=== PATIENT | female | born 1955 | race Caucasian/White ===

== ENCOUNTER → 2016-11-16 | Outpatient (CLI) | payer OTHER ==
--- NOTE | 2016-11-16 17:50 | RADRPT ---
PROCEDURE: XR pelvis/left hip. CLINICAL INDICATION: Hip pain TECHNIQUE: AP pelvis/AP and lateral left hip view performed COMPARISON: No prior studies are available for comparison. FINDINGS: There is moderate to severe bilateral hip osteoarthrosis. This is associated with joint space narrow ing, subchondral sclerosis , subchondral cyst formation and osteophytosis. There is normal minerali zation. No fracture is identified. There are probable sclerotic bone islands in the left ischium. The soft tissues are unremarkable. IMPRESSION: Moderate to severe bilateral hip osteoarthrosis. RPTAT: HGDB .Lupillo Ball MD, Date Time Electronically viewed and signed by .Lupillo Ball MD, on 11/16/2016 17:50 .B/
== END | disposition home or self-care (01) ==
LOC: HKI 10:57
PROVIDERS: ATTEND Orthopaedic Surgery
DX: M16.12 Unilateral primary osteoarthritis, left hip (principal); M25.551 Pain in right hip
CPT/HCPCS: 73502; G0463

== ENCOUNTER → 2016-12-28 | Outpatient (CLI) | payer OTHER | END | disposition home or self-care (01) | LOC: HKI 10:45 | PROVIDERS: ATTEND Orthopaedic Surgery | DX: M25.552 Pain in left hip (principal); M16.12 Unilateral primary osteoarthritis, left hip; J45.909 Unspecified asthma, uncomplicated | CPT/HCPCS: G0463 ==

== ENCOUNTER 2017-01-03 07:00 | Inpatient (IN) | payer OTHER ==
[~2017-01-03] VITALS: Ht 170.2 cm; Wt 84.3 kg
[2017-01-03] VITALS (38 sets, daily range): BP systolic 97–132; BP diastolic 46–94; PULSE 78–107; RESP 15–30; Ht 170.2 cm; Wt 84.3 kg
[~2017-01-03 07:00] MED LIST: BUPIVACAINE LIPOSOME/PF 266 MG/20 ML VIAL INFIL SCH; CEFAZOLIN 2GM/50 ML (PMX) 50 ML X1 BEFORE INCISION IVPB SCH; CELECOXIB 400 MG PO X1 DOSE PO SCH; ETOMIDATE 20 MG INJ ONE; EXPAREL NOTE (BUPIVICAINE LIPOSOMAL) XX SCH; LACTATED RINGER'S 1,000 ML IV SCH; LIDOCAINE 2% (SDV) 5 ML INJ ONE; PAIN COCKTAIL-CEFUROXIME IRR SCH; PREGABALIN 300 MG PO X1 PO SCH; TRANEXAMIC ACID 820 MG in SOD CHLORIDE 0.9% 100 ML IVPB SCH; TRANEXAMIC ACID 820 MG in SOD CHLORIDE 0.9% 91.8 ML IV SCH; oxyCODONE (CR) 10 MG TAB [oxyCONTIN] X1 DOSE PO SCH; traMADOL 50 MG TAB X 1 DOSE PO SCH
[2017-01-03] MEDS ORDERED: FENTAnyl 50 MCG/ML VIAL ONE (08:24)
[2017-01-03] MEDS ORDERED: MIDAZOLAM 1 MG/ML 2 ML INJ ONE (08:24)
[2017-01-03] MEDS ORDERED: GLYCOPYRROLATE 0.4 MG INJ ONE (08:24)
[2017-01-03] MEDS ORDERED: NEOSTIGMINE 3 MG/3 ML SYRINGE ONE (08:24)
[2017-01-03] MEDS ORDERED: PROPOFOL 0 ML ONE (08:24)
[2017-01-03] MEDS ORDERED: ROCURONIUM 50 MG INJ ONE (08:24)
[2017-01-03] MEDS ORDERED: CEFAZOLIN 1 GM INJ ONE (08:24)
[2017-01-03] MEDS ORDERED: ONDANSETRON 4 MG INJ ONE (08:25)
[2017-01-03] MEDS ORDERED: PROPOFOL 100 ML ONE (08:25)
[2017-01-03] MEDS ORDERED: DEXAMETHASONE 4 MG/ML 1 ML INJ ONE (08:25)
[2017-01-03] MEDS ORDERED: ATOR10TA65 PO (08:54)
[2017-01-03] MEDS ORDERED: AZEL23SP NASAL (08:55)
[2017-01-03] MEDS ORDERED: METO100T13 PO (08:55)
[2017-01-03] MEDS ORDERED: MONT10TA21 PO (08:56)
[2017-01-03] MEDS ORDERED: PANT40TA3 PO (08:56)
[2017-01-03] MEDS ORDERED: BECL8.7A5 INH (08:56)
[2017-01-03] MEDS ORDERED: TOLT4CAP PO (08:57)
[2017-01-03] MEDS ORDERED: CETI10CA PO (08:58)
--- NOTE | 2017-01-03 09:49 | HPN ---
Date/Time of Note Date/Time of Note DATE: 01/03/17 TIME: 09:48 Interval H&P Admission Note Pt. seen H&P reviewed: No system changes No changes from H&P on 12/26/16 by PARRISH Vaughn MD Jan 03, 2017 09:49
[2017-01-03] MEDS ORDERED: CITRIC ACID/NA CITRATE 30 ML CUP ONE (10:04)
[2017-01-03] MEDS ORDERED: VANCOMYCIN 1 GM INJ ONE (10:16)
[2017-01-03] MEDS ORDERED: POLYMYXIN B 500000 UNIT INJ ONE (10:16)
[2017-01-03] MEDS ORDERED: SODIUM CL BACTERIOSTATIC 30 ML INJ ONE (10:16)
[2017-01-03] MEDS ORDERED: CITRIC ACID/NA CITRATE 30 ML CUP PO ONE (10:30)
[2017-01-03] MEDS ORDERED: PHENYLephrine (100 MCG/ML) 5ML SYG ONE (10:59)
[2017-01-03] MEDS ORDERED: MIDAZOLAM 1 MG/ML 2 ML INJ IV PRN (11:30)
[2017-01-03] MEDS ORDERED: hydrALAzine 20 MG INJ IV PRN (11:30)
[2017-01-03] MEDS ORDERED: EPHEDrine SULFATE 50 MG/5 ML SYG IV PRN (11:30)
[2017-01-03] MEDS ORDERED: LABETALOL HCL 20MG INJ IV PRN (11:30)
[2017-01-03] MEDS ORDERED: DIPHENHYDRAMINE 50 MG INJ IV PRN (11:30)
[2017-01-03] MEDS ORDERED: FENTAnyl 50 MCG/ML VIAL IV PRN ×3 (11:30)
[2017-01-03] MEDS ORDERED: TRIMETHOBENZAMIDE 100 MG/ML VIAL IM PRN (11:30)
[2017-01-03] MEDS ORDERED: HYDROmorphONE (0.2 MG/ML) 10ML SYG IV PRN ×3 (11:30)
[2017-01-03] MEDS ORDERED: ONDANSETRON 4 MG INJ IV PRN (11:30)
[2017-01-03] MEDS ORDERED: MEPERIDINE 25 MG INJ IV PRN (11:30)
[2017-01-03] MEDS ORDERED: BACITRACIN 50000 UNITS INJ IRR ONE (11:40)
--- NOTE | 2017-01-03 13:24 | PN ---
Date/Time of Note Date/Time of Note DATE: 01/03/17 TIME: 13:23 Assessment/Plan Lines/Catheters IV Catheter Type (from Nrsg): Peripheral IV Assessment/Plan Assessment/Plan Stable in PACU, s/p left anterior JEANE -cont abx -pain meds as needed -ASA/SCDs for DVT prophylaxis -OOB with PT -monitor drains -check AM labs -d/c tabares in AM XR of the left hip is pending at this time Subjective 24 Hr Interval Summary Stable in PACU. Moving all extremities. Denies any pain. Exam/Review of Systems Vital Signs Vitals Vital Signs Date Time Temp Pulse Resp B/P Pulse Ox O2 Delivery O2 Flow Rate FiO2 01/03/17 13:21 97.5 01/03/17 09:20 78 18 129/86 99 Room Air Intake and Output 01/02/17 01/02/17 01/03/17 14:59 22:59 06:59 Intake Total 0 ml Balance 0 ml Exam Free Text/Dictation Dressing dry Incision clean, dry, and intact without redness or drainage 5/5 Quadriceps, Tibialis Anterior, EHL, Gastroc, Soleus, Peroneals Normal sensation Palpable DT/PT, CR <2 sec No distal edema KELSEY COOPER PA-C Jan 03, 2017 13:24
[2017-01-03] MEDS ORDERED: ASPIRIN (EC) 325 MG TAB PO ONE (13:30)
[2017-01-03] MEDS ORDERED: BISACODYL 10 MG SUPP PR PRN (13:30)
[2017-01-03] MEDS ORDERED: oxyCODONE 5 MG TAB PO PRN ×2 (13:30)
[2017-01-03] MEDS ORDERED: DIPHENHYDRAMINE 25 MG CAP PO PRN (13:30)
[2017-01-03] MEDS ORDERED: NA PHOSPHATE/BIPHOS 133 ML ENEMA PR PRN (13:30)
[2017-01-03] MEDS ORDERED: HYDROmorphONE 1 MG/ML SYG IV PRN (13:30)
[2017-01-03] MEDS ORDERED: MAGNESIUM HYDROXIDE 30ML CUP PO PRN (13:30)
[2017-01-03] MEDS ORDERED: NACL 0.9% 3 ML SYG IV SCH (13:30)
[2017-01-03] MEDS: CEFAZOLIN 2 GM/50 ML (PMX) 50 ML IVPB SCH ×2 (13:42→21:33)
[2017-01-03] MEDS ORDERED: ALBUTEROL 0.083% (NEB) 2.5 MG/3 ML AMP HHN PRN (14:00)
--- NOTE | 2017-01-03 14:20 | RADRPT ---
PROCEDURE: Intraoperative imaging of the left hip with fluoroscopy. CLINICAL INDICATION: Left hip pain. Intraoperative. TECHNIQUE: 20 images of the left hip were obtained in the operating room with an image intensifier . No radiologist was in attendance. 0.6 minutes of fluoroscopy time was used. COMPARISON: No prior study is available for comparison. FINDINGS: Images demonstrate placement of a total left hip arthroplasty. IMPRESSION: 1. Satisfactory intraoperative imaging of the left hip. RPTAT: QQ .Lavell Canseco MD, MD Date Time Electronically viewed and signed by .Lavell Canseco MD, MD on 01/03/2017 14:19 .R/
[2017-01-03 14:23] LABS: HEMATOCRIT 34.7 % (37.0-47.0); HEMOGLOBIN 11.2 g/dl (12.0-16.0)
[2017-01-03 14:38] LABS: CREATININE 0.56 mg/dl (0.44-1.00)
[2017-01-03 14:42] LABS: CALCIUM 8.9 mg/dl (8.4-10.2)
--- NOTE | 2017-01-03 14:52 | OPR ---
DATE OF OPERATION: 01/03/2017 DATE: 01/03/2017 PREOPERATIVE DIAGNOSIS: Left hip osteoarthritis. POSTOPERATIVE DIAGNOSIS: Left hip osteoarthritis. OPERATION PERFORMED: Left anterior total hip arthroplasty. SURGEON: Parrish Suarez MD [employer] OPERATOR: Ivette SORENSON COMPONENTS USED: DePuy size 50 mm Gription [place] cup, 50/32 neutral AltrX polyethylene liner, si ze 4 high-offset Actis stem, 32+5 ceramic head. ANESTHESIA: Spinal plus general endotracheal intubation plus periarticular injection. ANESTHESIOLOGIST: Miguel Oneill MD ESTIMATED BLOOD LOSS: 300 mL INTRAVENOUS FLUIDS: 2 liters crystalloid. SPECIMENS: Femoral head. DRAINS: Hemovac x1 COMPLICATIONS: None. DISPOSITION: The patient tolerated the procedure well and was taken to the recovery room in stable condition. INDICATIONS: The patient is a 61-year-old woman who has had progressive worsening pain in the left hip with radiographic evidence of severe osteoarthritis. She has failed nonsurgical means of treatm ent to control her pain including activity modifications, pain medications, intra-articular injectio ns and ambulatory assist devices. Despite these measures, she has had worsening pain and I felt she would benefit from a total hip arthroplasty through an anterior approach. The risks, benefits, and alternatives of the procedure were explained in detail to the patient. I e xplained the risks of the surgery to include, but not be limited to: bleeding and possible need for blood transfusion; infection; pain; stiffness; neurovascular injury with possible numbness, weakness , and/or paralysis anywhere from the hip down to the toes; fracture; instability; dislocation; leg l ength inequality; wear and/or loosening of the prosthesis and possible need for future revision; blo od clots; pulmonary embolism; and anesthetic complications such as heart attack, stroke, GI bleed, p neumonia, and/or . Ample time was allowed for the patient to ask questions, all of which were addressed and answered. The patient understood the risks involved and wished to proceed. Informed consent was signed prior to the procedure. PROCEDURE: The patient's left hip was initialed with a marking pen in the preoperative area to ident karla the correct operative site. The patient was brought to the operating room and transferred from the [facility] to the [facility] where a spinal anesthetic was administered. The patient was t hen anesthetized and intubated. A Stewart catheter was placed. Both feet were placed into well padde d boots which were then placed into the leg holders of the traction booms. A timeout was performed to confirm that the left side was the correct operative site. The patient was given 2 g of intraven ous Ancef within one hour prior to the procedure. The operative hip was prepped and draped in the u sual sterile fashion. A 10 cm oblique incision was made over the anterior aspect of the hip and carried down through subcu taneous tissue and fat with sharp dissection. The tensor fascia tony was incised along the length o f the wound. The tensor fascia muscle was retracted laterally and the sartorius medially. The anter ior circumflex vessels were identified and tied off with 2-0 silk suture and coagulated with the Apptimize demonstrator knitting. The rectus femoris was elevated off the anterior capsule and an anterior capsul ectomy performed. A femoral neck osteotomy was made and the head removed from the acetabulum. The acetabulum was denuded of cartilage circumferentially, as was the femoral head. Retractors were william cristy around the acetabulum. The remnants of the labrum and ligamentum teres were excised. I reamed the acetabulum to the medial wall and then went into an anatomic position and increased the reamer s ize in 2 mm increments until I got a good bite and was down to bleeding subchondral bone. The [place] cup was opened and impacted into the acetabulum and sat flush circumferentially, gettin g a good bite. C-arm imaging showed it had about 40 to 45 degrees of abduction and 20 degrees of ant eversion. The real liner was opened and impacted into the acetabulum and sat flush circumferentially . Attention was turned towards the femur. The operative leg was carefully lowered to the floor with the leg adducted. The foot was then exter ezequiel rotated to approximately 110 degrees. A posteromedial release was performed to optimize expos ure. The femoral hook was placed underneath the proximal femur and the hydraulic lift was then used to elevate the femur up out of the wound. The sherie cutter osteotome was used to remove the remai juliana overhanging greater trochanter. The femur was then broached, going up in one size increments u ntil it sat flush with the neck cut and a stable fit was achieved. The trial neck and head were ass embled and reduced into the acetabulum. Fluoroscopic imaging showed the components to be in good pos ition and the leg lengths and offsets to be equal. At this point, the trial was dislocated and the trial broach removed. The canal was irrigated and d ried. The real stem was opened and impacted into the femur. The trunnion was irrigated and dried, a nd the real femoral head was impacted onto the trunnion, and reduced into the acetabulum. The soft tissues were infiltrated with a mixture of 150 mg of 0.5% bupivacaine, 8 mg of Duramorph, 3 00 mcg of epinephrine, 30 mg of Toradol, 100 mcg of clonidine, 750 mg of cefuroxime and 86 mL of nor mal saline, followed by an injection of 266 mg of liposomal bupivacaine. At this point the hip was irrigated with a mixture of Betadine/saline and then antibiotic saline with pulsatile lavage. A Hem ovac drain was placed in the deep portion of the wound and brought out the anterolateral thigh. Ther e was good hemostasis. The tensor fascia tony was repaired with a running #1 Vicryl. The deep fat layer was irrigated and closed with 2-0 Stratafix and the subcutaneous layer closed with 3-0 Vicryl and the skin was closed with chinmay and then sealed with Dermabond. The drain was secured with 3-0 nylon. The sponge and needle counts were correct at the end of the case. The wound was covered with an occ lusive dressing. The patient was awakened, extubated, and taken to the recovery room in stable cond ition. Dictated By: PARRISH ARANGO/CONNIE Conf#: [id number] DID#: [id number]
--- NOTE | 2017-01-03 14:52 | CONS ---
DATE OF ADMISSION: 01/03/2017 DATE OF CONSULTATION: 01/03/2017 TYPE OF CONSULTATION: Postoperative medical consultative note Thank you very much for allowing me to evaluate this 61-year-old female who just underwent left tota l hip replacement. HISTORICAL EVENTS: As you well know, this patient has had progressive disabling pain involving her left hip and elected to proceed with surgery. In recovery, she is comfortable without cough, wheezi ng, shortness of breath, nausea, vomiting, abdominal or chest pain. MEDICATIONS: Prior to admission include: 1. Detrol-LA 4 mg per day. 2. Singulair 10 per day. 3. Metoprolol 100 mg per day. 4. Albuterol inhaler as needed along with Dymista and Zyrtec p.r.n. 10 mg. ALLERGIES: INTOLERANCES INCLUDE CIPRO AND LEVOFLOXACIN. SOCIAL HISTORY: Does not smoke, does not drink. FAMILY HISTORY: To be reviewed later. PHYSICAL EXAMINATION: GENERAL: [place] female in no acute distress. VITAL SIGNS: Blood pressure 121/80, pulse 70, respirations 20, she was afebrile. HEENT: Eyes: Extraocular muscles were full. Nose, mouth and throat are normal. NECK: Supple. There was no jugular venous distention, thyroid enlargement or adenopathy. LUNGS: Clear. HEART: Rhythm regular, no murmur. No third or fourth sound. ABDOMEN: Nontender. Liver and spleen were not palpable. No masses or tenderness were noted. EXTREMITIES: No edema, no calf tenderness. NEUROLOGIC: No lateralizing motor weakness. IMPRESSION: 1. Stable postop left hip replacement. 2. Tachycardia. We will continue beta nayely. 3. History of asthma. We will continue Singulair and use inhalers only if needed. 4. We will evaluate daily for signs and symptoms of thromboembolic disease despite appropriate deep venous thrombosis prophylaxis. Dictated By: MONIQUE YA MD MR/NTS Conf#: [id number] DID#: [id number] CC: PARRISH GANT MD;*EndCC*
--- NOTE | 2017-01-03 14:57 | RADRPT ---
PROCEDURE: XR Pelvis. CLINICAL INDICATION: Postop TECHNIQUE: Single AP view of the pelvis. COMPARISON: Left hip series 01/02/2017 FINDINGS: Patient is status post total left hip arthroplasty. Alignment is grossly anatomic. Hardware is inta ct. There is no evidence of hardware failure or fracture. Postoperative changes including a subcut aneous drain, skin chinmay, and subcutaneous gas are present. There are moderate degenerative saunders es of the right hip. IMPRESSION: 1. Total left hip arthroplasty in anatomic alignment. 2. Moderate degenerative change of the right hip. RPTAT: KK .Darrin Simpson MD, MD Date Time Electronically viewed and signed by .Darrin Simpson MD, MD on 01/03/2017 14:57 .B/
[2017-01-03] MEDS ORDERED: BACITRACIN 50000 UNITS INJ ONE (15:03)
[2017-01-03] MEDS ORDERED: TRANEXAMIC ACID 840 MG in SOD CHLORIDE 0.9% 100 ML IVPB ONE ×2 (16:30→19:30)
[2017-01-03] MEDS: METOPROLOL (XL) 50 MG TAB PO SCH (19:14)
[2017-01-03] MEDS: MOMETASONE 0.24 GM INHALER INH SCH (21:00)
[2017-01-03] MEDS ORDERED: NON-FORMULARY/PATIENT OWN MED (Azelastine/Fluticasone (Dymista Nasal Spray) 1 SPRAY) NASAL SCH (21:00)
[2017-01-03] MEDS: LACTATED RINGER'S 1,000 ML IV SCH ×2 (21:01→21:07)
[2017-01-03] MEDS: PANTOPRAZOLE (EC) 40 MG TAB PO SCH (21:01)
[2017-01-03] MEDS: ACETAMINOPHEN 1000MG/100ML IV 100 ML IVPB SCH (21:01)
[2017-01-03] MEDS: MONTELUKAST 10 MG TAB PO SCH (21:02)
[2017-01-03] MEDS: ATORVASTATIN 10 MG TAB PO SCH (21:02)
[2017-01-03] MEDS: DOCUSATE SODIUM 100 MG CAP PO SCH (21:02)
[2017-01-03] MEDS: PREGABALIN 25 MG CAP PO SCH (21:03)
[2017-01-03] MEDS: traMADol 50 MG TAB PO SCH (21:03)
--- NOTE | 2017-01-03 21:33 | OPR ---
Date/Time of Note Date/Time of Note DATE: 01/03/17 TIME: 21:32 Operative Report Free Text/Dictation Dictation # [id number] Procedure Date: Jan 03, 2017 Preoperative Diagnosis Left hip OA Postoperative Diagnosis Same Operation Performed Left Anterior JEANE Surgeon: PARRISH GANT MD optometry assistant: KELSEY COOPER PA-C Anesthesia: general, spinal Anesthesiologist: Miguel Oneill M.D. Estimated Blood Loss: 250 - 300 ml's Specimens Femoral Head Tubes/Drains Hemovac x 1 Complications: None Pt Condition Post Procedure: stable Disposition: PACU PARRISH GANT MD Jan 03, 2017 21:33
[2017-01-03] MEDS: ONDANSETRON 4 MG INJ IV PRN (21:37)
[2017-01-04 00:09] VITALS: BP 103/74; RESP 17
[2017-01-04] MEDS: traMADol 50 MG TAB PO SCH ×5 (01:41→23:19)
[2017-01-04] MEDS: ACETAMINOPHEN 1000MG/100ML IV 100 ML IVPB SCH ×3 (01:42→11:50)
[2017-01-04] MEDS: CEFAZOLIN 2 GM/50 ML (PMX) 50 ML IVPB SCH (04:53)
[2017-01-04] MEDS: PANTOPRAZOLE (EC) 40 MG TAB PO SCH ×2 (04:54→17:47)
[2017-01-04] MEDS: LACTATED RINGER'S 1,000 ML IV SCH ×3 (05:07→14:11)
[2017-01-04 05:19] LABS: HEMATOCRIT 31.4 % (37.0-47.0); HEMOGLOBIN 10.2 g/dl (12.0-16.0)
[2017-01-04 05:26] LABS: POTASSIUM 4.1 mmol/L (3.5-5.1)
[2017-01-04 05:28] LABS: CREATININE 0.56 mg/dl (0.44-1.00)
[2017-01-04 05:29] LABS: CALCIUM 8.9 mg/dl (8.4-10.2)
--- NOTE | 2017-01-04 08:34 | CONS ---
Date/Time of Note Date/Time of Note DATE: 01/04/17 TIME: 08:33 Assessment/Plan Assessment/Plan Additional Assessment/Plan 1. Stable postop left hip replacement. 2. Tachycardia, asx 3. History of asthma, quiescent Consultation Date/Type/Reason Admit Date/Time Jan 03, 2017 at 08:00 Initial Consult Date Detailed Summary Respiratory: No shortness of breath Cardiovascular: No chest pain Gastrointestinal: no complaints Genitourinary: other (tabares still in place) Musculoskeletal: bone/joint pain (mild left hip pain) Exam/Review of Systems Vital Signs Vitals Vital Signs Date Time Temp Pulse Resp B/P Pulse Ox O2 Delivery O2 Flow Rate FiO2 01/04/17 00:09 98.4 103 17 103/74 96 01/03/17 22:30 Nasal Cannula 2.0 Intake and Output 01/03/17 01/03/17 01/04/17 15:00 23:00 07:00 Intake Total 2708.2 ml 2400 ml Output Total 1130 ml 1710 ml Balance 1578.2 ml 690 ml Exam Neck: No jvd Respiratory: clear to auscultation Cardiovascular: regular rate and rhythm Gastrointestinal: soft Extremities: No edema (and no calf tend bilat) Results Result Diagram: 01/04/17 0420 01/04/17 0420 Results 24 hrs Laboratory Tests Test 01/03/17 14:08 01/04/17 04:20 Hemoglobin 11.2 L 10.2 L Hematocrit 34.7 L 31.4 L Sodium Level 139 139 Potassium Level 4.0 4.1 Chloride Level 104 105 Carbon Dioxide Level 25 26 Anion Gap 14 12 Blood Urea Nitrogen 11 11 Creatinine 0.56 0.56 Glucose Level 155 112 # Calcium Level 8.9 8.9 Medications Medications Current Medications Miscellaneous Information 1 ea NOTE XX ; Start 01/03/17 at 06:00; Stop 01/07/17 at 05:59 Atorvastatin Calcium (Lipitor) 10 mg QHS PO Last administered on 01/03/17 21: 02; Admin Dose 10 MG; Start 01/03/17 at 21:00 Montelukast Sodium (Singulair) 10 mg QHS PO Last administered on 01/03/17 21: 02; Admin Dose 10 MG; Start 01/03/17 at 21:00 Tolterodine Tartrate (Detrol La) 4 mg DAILY PO ; Start 01/04/17 at 09:00 Mometasone Furoate (Asmanex) 1 puff BID INH ; Start 01/03/17 at 21:00 Loratadine 10 mg 10 mg DAILY PO ; Start 01/04/17 at 09:00 Lactated Ringer's (Lr) 1,000 ml @ 125 mls/hr Q8H IV Last administered on 21:01; Admin Dose 125 MLS/HR; Start 01/03/17 at 13:07 Celecoxib 200 mg 200 mg DAILY PO ; Start 01/04/17 at 09:00 Acetaminophen (Ofirmev 1000mg/ 100ml Iv) 100 ml @ 400 mls/hr Q6 IVPB Last administered on 01/04/17 05:36; Admin Dose 400 MLS/HR; Start 01/03/17 at 18:00 ; Stop 01/04/17 at 17:59 Tramadol HCl (Ultram) 50 mg Q6 PO Last administered on 01/04/17 04:54; Admin Dose 50 MG; Start 01/03/17 at 18:00; Stop 01/06/17 at 17:59 Oxycodone HCl (Roxicodone) 5 mg Q4H PRN PO PAIN LEVEL 1-3; Start 01/03/17 at 13 :30 Oxycodone HCl (Roxicodone) 10 mg Q4H PRN PO PAIN LEVEL 4-7; Start 01/03/17 at 13:30 Hydromorphone HCl (Dilaudid) 1 mg Q3H PRN IV PAIN LEVEL 8-10; Start 01/03/17 at 13:30 Ondansetron HCl (Zofran Inj) 4 mg Q6H PRN IV NAUSEA AND/OR VOMITING Last administered on 01/03/17 21:37; Admin Dose 4 MG; Start 01/03/17 at 13:30 Bisacodyl (Dulcolax Supp) 10 mg Q12H PRN [place] CONSTIPATION; Start 01/03/17 at 13: 30 Magnesium Hydroxide (Milk Of Mag) 30 ml BID PRN PO CONSTIPATION; Start at 13:30 Sodium Biphosphate/ Sodium Phosphate (Fleet Enema) 133 ml DAILY PRN [place] CONSTIPATION; Start 01/03/17 at 13:30 Docusate Sodium (Colace) 100 mg BID PO Last administered on 01/03/17 21:02; Admin Dose 100 MG; Start 01/03/17 at 21:00 Diphenhydramine HCl (Benadryl) 25 mg Q6H PRN PO PRURITUS; Start 01/03/17 at 13: 30 Aspirin (Ecotrin) 325 mg BID PO ; Start 01/04/17 at 09:00 Pregabalin (Lyrica) 50 mg BID PO Last administered on 01/03/17 21:03; Admin Dose 50 MG; Start 01/03/17 at 21:00 Pantoprazole (Protonix Tab) 40 mg BID@06,18 PO Last administered on 01/04/17 04:54; Admin Dose 40 MG; Start 01/03/17 at 18:00 Metoprolol Succinate (Toprol Xl) 50 mg BID PO Last administered on 01/03/17 19 :14; Admin Dose 50 MG; Start 01/03/17 at 19:00 MONIQUE YA MD Jan 04, 2017 08:34
[2017-01-04] MEDS: MOMETASONE 0.24 GM INHALER INH SCH ×2 (09:00→21:00)
[2017-01-04] MEDS ORDERED: METOPROLOL (XL) 100 MG TAB PO SCH (09:00)
--- NOTE | 2017-01-04 09:00 | PN ---
Date/Time of Note Date/Time of Note DATE: 01/04/17 TIME: 08:59 Assessment/Plan Lines/Catheters IV Catheter Type (from Nrsg): Peripheral IV Stewart in Place (from Nrsg): Yes Assessment/Plan Assessment/Plan Stable POD #1, s/p left anterior JEANE -d/c abx -pain meds as needed -ASA/SCDs for DVT prophylaxis -OOB with PT -drain removed -check AM labs -d/c planning. Will go home upon discharge Subjective 24 Hr Interval Summary No acute overnight events. Denies pain. Did not start PT yesterday. VSS, afebrile. Will plan to go home upon discharge. Exam/Review of Systems Vital Signs Vitals Vital Signs Date Time Temp Pulse Resp B/P Pulse Ox O2 Delivery O2 Flow Rate FiO2 01/04/17 00:09 98.4 103 17 103/74 96 01/03/17 22:30 Nasal Cannula 2.0 Intake and Output 01/03/17 01/03/17 01/04/17 14:59 22:59 06:59 Intake Total 2708.2 ml 2400 ml Output Total 1130 ml 1710 ml Balance 1578.2 ml 690 ml Exam Free Text/Dictation Hemovac: 90cc Dressing dry Incision clean, dry, and intact without redness or drainage 5/5 Quadriceps, Tibialis Anterior, EHL, Gastroc, Soleus, Peroneals Normal sensation Palpable DT/PT, CR <2 sec No distal edema Results Result Diagram: 01/04/1741901/04/17419 KELSEY COOPER PA-C Jan 04, 2017 09:00
[2017-01-04 09:11] VITALS: BP 115/64; RESP 14
[2017-01-04 09:39] LABS: ADD UMIC YES; URINE BILIRUBIN (Dip) NEGATIVE (NEGATIVE); URINE BLOOD (Dip) 1+ (NEGATIVE); URINE COLOR LT. YELLOW (YELLOW); URINE GLUCOSE (Dip) NEGATIVE (NEGATIVE); URINE KETONES (Dip) NEGATIVE (NEGATIVE); URINE LEUKOCYTE ESTERASE (Dip) NEGATIVE (NEGATIVE); URINE NITRITE (Dip) NEGATIVE (NEGATIVE); URINE TOTAL PROTEIN (Dip) NEGATIVE (NEGATIVE); URINE UROBILINOGEN (Dip) 0.2 E.U./dL (0.1-1.0)
[2017-01-04] MEDS: PREGABALIN 25 MG CAP PO SCH (09:43)
[2017-01-04] MEDS: CELECOXIB 200 MG CAP PO SCH (09:43)
[2017-01-04] MEDS: ASPIRIN (EC) 325 MG TAB PO SCH ×2 (09:43→21:06)
[2017-01-04] MEDS: DOCUSATE SODIUM 100 MG CAP PO SCH ×2 (09:43→21:06)
[2017-01-04] MEDS: LORATADINE 10 MG TAB PO SCH (09:44)
[2017-01-04] MEDS: METOPROLOL (XL) 50 MG TAB PO SCH ×2 (09:45→21:08)
[2017-01-04] MEDS: TOLTERODINE (SR) 4 MG CAP PO SCH (09:46)
[2017-01-04] MEDS: ONDANSETRON 4 MG INJ IV PRN (09:51)
[2017-01-04 20:08] VITALS: BP 106/61; RESP 19
[2017-01-04] MEDS: ATORVASTATIN 10 MG TAB PO SCH (21:06)
[2017-01-04] MEDS: MONTELUKAST 10 MG TAB PO SCH (21:06)
[2017-01-04] MEDS: PREGABALIN 50 MG CAP PO SCH (21:06)
[2017-01-05] MEDS: LACTATED RINGER'S 1,000 ML IV SCH ×2 (05:07→13:07)
[2017-01-05 05:29] LABS: HEMATOCRIT 30.9 % (37.0-47.0); HEMOGLOBIN 9.9 g/dl (12.0-16.0)
[2017-01-05 05:37] LABS: POTASSIUM 4.1 mmol/L (3.5-5.1)
[2017-01-05 05:40] LABS: CREATININE 0.69 mg/dl (0.44-1.00)
[2017-01-05 05:41] LABS: CALCIUM 8.7 mg/dl (8.4-10.2)
[2017-01-05] MEDS: PANTOPRAZOLE (EC) 40 MG TAB PO SCH (05:57)
[2017-01-05] MEDS: traMADol 50 MG TAB PO SCH ×2 (05:57→12:00)
[2017-01-05 08:51] VITALS: BP 102/54; RESP 18
[2017-01-05] MEDS: MOMETASONE 0.24 GM INHALER INH SCH (09:00)
[2017-01-05] MEDS: METOPROLOL (XL) 50 MG TAB PO SCH (09:00)
[2017-01-05] MEDS: CELECOXIB 200 MG CAP PO SCH (09:05)
[2017-01-05] MEDS: TOLTERODINE (SR) 4 MG CAP PO SCH (09:05)
[2017-01-05] MEDS: DOCUSATE SODIUM 100 MG CAP PO SCH (09:05)
[2017-01-05] MEDS: ASPIRIN (EC) 325 MG TAB PO SCH (09:05)
[2017-01-05] MEDS: LORATADINE 10 MG TAB PO SCH (09:06)
[2017-01-05] MEDS: PREGABALIN 50 MG CAP PO SCH (09:06)
--- NOTE | 2017-01-05 12:02 | CONS ---
Date/Time of Note Date/Time of Note DATE: 01/05/17 TIME: 12:00 Assessment/Plan Assessment/Plan Additional Assessment/Plan 1. Doing well left hip replacement. 2. Dizziness with standing, will ck orthostatic BP's., will hold beta nayely 3. Nausea may be related to lyrica vs ultram, she will rev with ortho Consultation Date/Type/Reason Admit Date/Time Jan 03, 2017 at 08:00 Detailed Summary Respiratory: No cough, No shortness of breath Cardiovascular: other (a bit dizzy when standing), No chest pain Gastrointestinal: nausea, No vomiting Genitourinary: no complaints Musculoskeletal: bone/joint pain (mild left hip pain) Exam/Review of Systems Vital Signs Vitals Vital Signs Date Time Temp Pulse Resp B/P Pulse Ox O2 Delivery O2 Flow Rate FiO2 01/05/17 08:51 98.6 90 18 102/54 97 01/03/17 22:30 Nasal Cannula 2.0 Intake and Output 01/04/17 01/04/17 01/05/17 15:00 23:00 07:00 Intake Total 1780 ml 800 ml Output Total 300 ml 850 ml Balance 1480 ml -50 ml Exam Neck: No jvd Respiratory: clear to auscultation Cardiovascular: regular rate and rhythm Gastrointestinal: soft Extremities: No edema (and no calf tend) Results Result Diagram: 01/05/177 01/05/17 043 Results 24 hrs Laboratory Tests Test 01/05/17 04:37 Hemoglobin 9.9 L Hematocrit 30.9 L Sodium Level 141 Potassium Level 4.1 Chloride Level 105 Carbon Dioxide Level 32 H Anion Gap 8 Blood Urea Nitrogen 13 Creatinine 0.69 Glucose Level 102 Calcium Level 8.7 Medications Medications Current Medications Miscellaneous Information 1 ea NOTE XX ; Start 01/03/17 at 06:00; Stop 01/07/17 at 05:59 Atorvastatin Calcium (Lipitor) 10 mg QHS PO Last administered on 01/04/17 21: 06; Admin Dose 10 MG; Start 01/03/17 at 21:00 Montelukast Sodium (Singulair) 10 mg QHS PO Last administered on 01/04/17 21: 06; Admin Dose 10 MG; Start 01/03/17 at 21:00 Tolterodine Tartrate (Detrol La) 4 mg DAILY PO Last administered on 01/05/17 09:05; Admin Dose 4 MG; Start 01/04/17 at 09:00 Mometasone Furoate (Asmanex) 1 puff BID INH ; Start 01/03/17 at 21:00 Loratadine 10 mg 10 mg DAILY PO Last administered on 01/05/17 09:06; Admin Dose 10 MG; Start 01/04/17 at 09:00 Lactated Ringer's (Lr) 1,000 ml @ 125 mls/hr Q8H IV Last administered on 14:11; Admin Dose 125 MLS/HR; Start 01/03/17 at 13:07 Celecoxib (Celebrex) 200 mg DAILY PO Last administered on 01/05/17 09:05; Admin Dose 200 MG; Start 01/04/17 at 09:00 Tramadol HCl (Ultram) 50 mg Q6 PO Last administered on 01/05/17 05:57; Admin Dose 50 MG; Start 01/03/17 at 18:00; Stop 01/06/17 at 17:59 Oxycodone HCl (Roxicodone) 5 mg Q4H PRN PO PAIN LEVEL 1-3; Start 01/03/17 at 13 :30 Oxycodone HCl (Roxicodone) 10 mg Q4H PRN PO PAIN LEVEL 4-7; Start 01/03/17 at 13:30 Hydromorphone HCl (Dilaudid) 1 mg Q3H PRN IV PAIN LEVEL 8-10; Start 01/03/17 at 13:30 Ondansetron HCl (Zofran Inj) 4 mg Q6H PRN IV NAUSEA AND/OR VOMITING Last administered on 01/04/17 09:51; Admin Dose 4 MG; Start 01/03/17 at 13:30 Bisacodyl (Dulcolax Supp) 10 mg Q12H PRN [place] CONSTIPATION; Start 01/03/17 at 13: 30 Magnesium Hydroxide (Milk Of Mag) 30 ml BID PRN PO CONSTIPATION; Start at 13:30 Sodium Biphosphate/ Sodium Phosphate (Fleet Enema) 133 ml DAILY PRN [place] CONSTIPATION; Start 01/03/17 at 13:30 Docusate Sodium (Colace) 100 mg BID PO Last administered on 01/05/17 09:05; Admin Dose 100 MG; Start 01/03/17 at 21:00 Diphenhydramine HCl (Benadryl) 25 mg Q6H PRN PO PRURITUS; Start 01/03/17 at 13: 30 Aspirin (Ecotrin) 325 mg BID PO Last administered on 01/05/17 09:05; Admin Dose 325 MG; Start 01/04/17 at 09:00 Pantoprazole (Protonix Tab) 40 mg BID@,18 PO Last administered on 01/05/17 05:57; Admin Dose 40 MG; Start 01/03/17 at 18:00 Metoprolol Succinate (Toprol Xl) 50 mg BID PO Last administered on 01/04/17 21 :08; Admin Dose 50 MG; Start 01/03/17 at 19:00 Pregabalin (Lyrica) 50 mg BID PO Last administered on 01/05/17 09:06; Admin Dose 50 MG; Start 01/04/17 at 21:00 MONIQUE YA MD Jan 05, 2017 12:02
[2017-01-05 12:15] VITALS: BP 112/59; PULSE 77; RESP 18
[2017-01-05 12:17] VITALS: BP 105/56; PULSE 80; RESP 18
[2017-01-05 12:20] VITALS: BP 110/62; PULSE 87; RESP 18
[2017-01-05] MEDS ORDERED: ACETAMINOPHEN 325 MG TAB PO PRN (12:30)
--- NOTE | 2017-01-05 13:32 | PDOCDIS ---
Discharge Instructions DIAGNOSIS Discharge Diagnosis: s/p left anterior JEANE CONDITION Patient Condition: Good HOME CARE INSTRUCTIONS: Diet Instructions: Regular ACTIVITY: Activity Restrictions: Slowly Increase Activity Rest between Activity Avoid heavy lifting Do not operate Machinery Do not operate Power Tool Avoid Heavy Housework Keep Limb Elevated Bathing Restrictions: Shower FOLLOW UP/APPOINTMENTS Appointments follow up in the office on 01/13/17 OTHER ORDERS: Other Orders: S/P Anterior JEANE Physical Therapy: Three times per week at home x 2 weeks Daily in Rehab/SNF WB STATUS: WBAT Strengthening exercises for both upper and un-operated lower extremities. 1. Gait training with front wheeled walker 2. Wide base gait, no pivot turns. 3. Abductor strengthening. 4. Quadriceps and hamstring strengthening. 5. May switch to cane in contra lateral hand 6 weeks after surgery. 6. Physical Therapy can open case if nursing is not available. 7. Ice Packs while at rest to surgical wound for 20 minutes, 3 times/day. 8. Patient requires mobile SCDs to reduce risk of developing DVT following JEANE. Patient will use the mobile SCDs for 30 days postoperatively. Hip Precautions: No posterior hip precautions. Bathing assistance by home health aide twice weekly if Medicare patient. Occupational Therapy: Evaluation for assistive devices and ADL training. Wound Care: Keep incision dry & covered with Tegaderm until first visit with Dr. Suarez Anticoagulation Orders: Enteric Coated Aspirin 325 mg po bid x 6 weeks from date of surgery Follow-up:Call for an appointment with Dr. Suarez in 1 week after discharged from hospital at DME Orders: JOSE L, 3-in-1 Commode, Mobile SCDs KELSEY COOPER PA-C Jan 05, 2017 13:32
[2017-01-05] MEDS ORDERED: ASPI325T32 PO (13:34)
[2017-01-05] MEDS ORDERED: HYDR-906 PO (13:34)
[2017-01-05] MEDS ORDERED: TRAM50TA2 PO (13:34)
--- NOTE | 2017-01-05 18:14 | PN ---
Date/Time of Note Date/Time of Note DATE: 01/05/17 TIME: 18:13 Assessment/Plan Lines/Catheters IV Catheter Type (from Nrsg): Saline Lock Stewart in Place (from Nrsg): No Assessment/Plan Assessment/Plan Stable POD #2, s/p left anterior JEANE -pain meds as needed -ASA/SCDs for DVT prophylaxis -OOB with PT -dressing changed -d/c home today -follow up in the office in 1 week Subjective 24 Hr Interval Summary No acute overnight events. Denies pain. Progressing well with PT. Would like to go home today. Exam/Review of Systems Vital Signs Vitals Vital Signs Date Time Temp Pulse Resp B/P Pulse Ox O2 Delivery O2 Flow Rate FiO2 01/05/17 12:20 87 18 110/62 01/05/17 08:51 98.6 97 01/03/17 22:30 Nasal Cannula 2.0 Intake and Output 01/04/17 01/04/17 01/05/17 15:00 23:00 07:00 Intake Total 1780 ml 800 ml Output Total 300 ml 850 ml Balance 1480 ml -50 ml Exam Free Text/Dictation Dressing dry Incision clean, dry, and intact without redness or drainage 5/5 Quadriceps, Tibialis Anterior, EHL, Gastroc, Soleus, Peroneals Normal sensation Palpable DT/PT, CR <2 sec No distal edema Results Result Diagram: 01/05/177 01/05/177 KELSEY COOPER PA-C Jan 05, 2017 18:14
--- NOTE | 2017-01-06 06:43 | DS ---
DATE OF ADMISSION: 01/03/2017 DATE OF DISCHARGE: 01/05/2017 CONDITION ON DISCHARGE: Stable. ADMITTING DIAGNOSIS: Left hip osteoarthritis. DISCHARGE DIAGNOSIS: Status post left anterior total hip arthroplasty. PROCEDURE PERFORMED: Left anterior total hip arthroplasty. HOSPITAL COURSE: This is a 61-year-old female who was seen in the clinic initially complaining of left knee. Radiographs were done that demonstrated advanced osteoarthritis of the left hip and it was thought she would benefit from a left anterior total hip arthroplasty. On 01/03/2017 the patient was admitted and taken to the operating room, where she underwent a left total hip arthroplasty. There were no intraoperative complications. The patient tolerated the procedure well. She was taken to the recovery room in stable condition. Pain was well controlled with oral pain medication. She was started on aspirin and SCDs for DVT prophylaxis. She remained hemodynamically stable and neurovascularly intact throughout her hospital stay. She began physical therapy on postoperative day zero and continued to make progress. She was deemed stable for discharge on postoperative day 2. Prior to discharge the incision was inspected and noted to be clean, dry and intact. Dressing changes were done prior to the patient going home. LABORATORY ANALYSIS: Hemoglobin 9.9, hematocrit 30.9. Chemistry panel was within normal limits. DISCHARGE MEDICATIONS: 1. [place] 5/325 mg. 2. Tramadol 50 mg. 3. Aspirin 325 mg. 4. Additionally, the patient is to resume all of her normal home medications. DISCHARGE INSTRUCTIONS: The patient will be discharged home in stable condition. She is to resume her normal diet. Activity includes weightbearing as tolerated on the left lower extremity. She will began physical therapy with home health. She will be discharged home with the medications noted above and is to resume all of her normal home medications. The patient is to call the office or go to the emergency room for any concerns, including increased redness , swelling, drainage, fever or any concerns regarding the operation or site of incision. FOLLOWUP: The patient is to follow up in the office on 01/13/2017. Dictated By: KELSEY STARKEY/CONNIE Conf#: [id number] DID#: [id number] SILVESTRE
== END 2017-01-05 15:20 | disposition home or self-care (01) | DRG 470 ==
LOC: REC 08:00 → MS1 19:55
PROVIDERS: ADMIT Orthopaedic Surgery; ATTEND Orthopaedic Surgery
PROC: 0SRB04A Replacement of Left Hip Joint with Ceramic on Polyethylene Synthetic Substitute, Uncemented, Open Approach (ICD-10-PCS; principal; 2017-01-03 10:00)
DX: M16.12 Unilateral primary osteoarthritis, left hip (principal); E78.5 Hyperlipidemia, unspecified; J45.909 Unspecified asthma, uncomplicated; K21.9 Gastro-esophageal reflux disease without esophagitis; R00.0 Tachycardia, unspecified
CPT/HCPCS: 72170; 73530; 80048; 81001; 81003; 85014; 85018; 86850; 86900; 86901; 86920; 87081; 87086; 97110; 97116; 97163; 97166; 97530; Z7610; C1776; C9290; J0131; J0171; J0690; J0697; J0735; J1100; J1885; J2250; J2274; J2370; J2405; J2710; J3010; J3370; J7120

== ENCOUNTER → 2017-01-13 | Outpatient (CLI) | payer OTHER ==
[~2017-01-13] MED LIST changes: +ASPI325T32 PO; +ATOR10TA65 PO; +AZEL23SP NASAL; +BECL8.7A5 INH; -BUPIVACAINE LIPOSOME/PF 266 MG/20 ML VIAL INFIL SCH; -CEFAZOLIN 2GM/50 ML (PMX) 50 ML X1 BEFORE INCISION IVPB SCH; -CELECOXIB 400 MG PO X1 DOSE PO SCH; +CETI10CA PO; -ETOMIDATE 20 MG INJ ONE; -EXPAREL NOTE (BUPIVICAINE LIPOSOMAL) XX SCH; +HYDR-906 PO; -LACTATED RINGER'S 1,000 ML IV SCH; -LIDOCAINE 2% (SDV) 5 ML INJ ONE; +METO100T13 PO; +MONT10TA21 PO; -PAIN COCKTAIL-CEFUROXIME IRR SCH; +PANT40TA3 PO; -PREGABALIN 300 MG PO X1 PO SCH; +TOLT4CAP PO; +TRAM50TA2 PO; -TRANEXAMIC ACID 820 MG in SOD CHLORIDE 0.9% 100 ML IVPB SCH; -TRANEXAMIC ACID 820 MG in SOD CHLORIDE 0.9% 91.8 ML IV SCH; -oxyCODONE (CR) 10 MG TAB [oxyCONTIN] X1 DOSE PO SCH; -traMADOL 50 MG TAB X 1 DOSE PO SCH
--- NOTE | 2017-01-13 11:49 | HKNOTE ---
DATE OF SERVICE: 01/13/2017 INTERVAL HISTORY: The patient presents today for her first postoperative evaluation. She is 10 day s status post left anterior total hip arthroplasty. She is doing excellent overall. She is ambulat ing without any assistive device as her pain that she had before surgery is essentially gone at this point. She has not needed much pain medicine and is taking Tylenol only for pain. She is taking t he aspirin twice daily for DVT prophylaxis. She is doing physical therapy at home and would like to transition to an outpatient physical therapy program. She presents today for her first postoperati ve evaluation. PHYSICAL EXAMINATION: On exam today, she is alert and oriented x4 and in no acute distress. She is ambulating without any assistive device. Exam of the incision demonstrates it to be clean, dry and intact. There is no erythema or warmth noted. Maxine are in place. There is no drainage. Homans sign is negative. Compartments are soft. She is neurovascularly intact distally. IMAGING: X-rays of left hip were obtained today and reviewed by me. They demonstrate good anatomic alignment of the prosthesis with no fracture or dislocation identified. ASSESSMENT: Ten days status post left anterior total hip arthroplasty, doing very well overall. PLAN: The maxine were removed today and Steri-Strips were applied. She is to continue aspirin 325 mg twice daily for 6 weeks for DVT prophylaxis. She is to continue physical therapy with home heal th and can transition to an outpatient therapy program if needed. We will see her back in 4 weeks f or reevaluation. If she has any concerns she will call the office in the meantime. Dictated By: KELSEY SORENSON for PARRISH STARKEY/CONNIE Conf#: [id number] DID#: [id number]
--- NOTE | 2017-01-13 17:14 | RADRPT ---
PROCEDURE: XR Left Hip. CLINICAL INDICATION: Left hip pain. Postop. TECHNIQUE: Single frontal view. COMPARISON: 01/03/2017. FINDINGS: There is a left hip total arthroplasty. This appears satisfactory with no fracture, dislocation or loosening. There is no lytic lesion. Left lateral skin chinmay are noted. The surgical drain has been removed. IMPRESSION: 1. Satisfactory postoperative appearance of the left hip. RPTAT: QQ .Lavell Canseco MD, MD Date Time Electronically viewed and signed by .Lavell Canseco MD, MD on 01/13/2017 17:13 .R/
--- NOTE | 2017-01-13 17:14 | RADRPT ---
PROCEDURE: XR Pelvis. CLINICAL INDICATION: Pelvic pain. TECHNIQUE: Single AP view of the pelvis. COMPARISON: 01/03/2017. FINDINGS: There is no fracture or dislocation. There is no lytic or blastic lesion. There are moderate degenerative changes of the right hip with joint space narrowing and osteophytes. There is a left hip total arthroplasty which appears satisfactory. Left lateral skin chinmay are n oted. The surgical drain has been removed. The sacroiliac joints are grossly unremarkable. The upper pelvis is not included on the image. IMPRESSION: 1. Moderate degenerative changes of the right hip. 2. Satisfactory postoperative appearance of the left hip. RPTAT: QQ .Lavell Canseco MD, Date Time Electronically viewed and signed by .Lavell Canseco MD, on 01/13/2017 17:14 .R/
== END | disposition home or self-care (01) ==
LOC: HKI 10:23
PROVIDERS: ATTEND Orthopaedic Surgery
DX: Z47.1 Aftercare following joint replacement surgery (principal); Z96.642 Presence of left artificial hip joint
CPT/HCPCS: 72170; 73501

== ENCOUNTER → 2017-02-08 | Outpatient (CLI) | payer OTHER ==
--- NOTE | 2017-02-09 09:10 | RADRPT ---
PROCEDURE: XR pelvis/left hip. CLINICAL INDICATION: Hip pain TECHNIQUE: AP pelvis/lateral left hip view performed. COMPARISON: 01/13/2017 FINDINGS: There is a left total hip replacement. There is no evidence of loosening of the prosthesis. No hardw are failure identified. There is moderate to severe right hip osteoarthrosis. This is associated with joint space narrowing, subchondral sclerosis, subchondral cyst formation and osteophytosis. There is normal osseous silver miner blasting alization. No fractures or osseous lesions are identified. The soft tissues are unremarkable. IMPRESSION: Left total hip replacement. Moderate to severe right hip osteoarthrosis. RPTAT: HGDB .Lupillo Ball MD, MD Date Time Electronically viewed and signed by .Lupillo Ball MD, on 02/09/2017 09:10 .B/
== END | disposition home or self-care (01) ==
LOC: HKI 11:01
PROVIDERS: ATTEND Orthopaedic Surgery
DX: Z47.1 Aftercare following joint replacement surgery (principal); Z96.642 Presence of left artificial hip joint; M16.12 Unilateral primary osteoarthritis, left hip
CPT/HCPCS: 73502

== ENCOUNTER → 2017-04-05 | Outpatient (CLI) | payer OTHER ==
--- NOTE | 2017-04-05 15:12 | RADRPT ---
PROCEDURE: XR Pelvis and Hips. CLINICAL INDICATION: Pelvic pain. Bilateral hip pain. TECHNIQUE: Five views. Frontal pelvis. Frontal and lateral right hip. Frontal and lateral left hip. COMPARISON: 02/08/2017. FINDINGS: There is no fracture or dislocation. The soft tissues are normal. There are moderate degenerative changes of the right hip with joint space narrowing and osteophytes. There is a left hip total arthroplasty which appears satisfactory. There is no fracture, dislocat ion, or loosening. There is no lytic or blastic lesion. IMPRESSION: 1. Moderate degenerative changes of the right hip. 2. Satisfactory postoperative appearance of the left hip. RPTAT: QQ .Lavell Canseco MD, MD Date Time Electronically viewed and signed by .Lavell Canseco MD, on 04/05/2017 15:12 .R/
== END | disposition home or self-care (01) ==
LOC: HKI 11:00
PROVIDERS: ATTEND Orthopaedic Surgery
DX: M16.0 Bilateral primary osteoarthritis of hip (principal); E78.00 Pure hypercholesterolemia, unspecified; Z96.642 Presence of left artificial hip joint
CPT/HCPCS: 73523; G0463